=== PATIENT | female | born 1935 | race Caucasian/White ===

== ENCOUNTER 2017-08-06 10:18 | Emergency (ER) | payer MEDICARE, BC, OTHER ==
[2017-08-06 10:45] VITALS: BP 133/69
--- NOTE | 2017-08-06 10:58 | UC ---
Neck Pain HPI - HPI Summary HPI Summary: C/O right sided neck pain over the last 3 days, worse since last night. - History of Current Complaint Chief Complaint: UCUpperExtremity Stated Complaint: NECK PAIN Time Seen by Provider: 08/06/17 10:50 Hx Obtained From: Patient ?: No Onset/Duration Of Injury/Symptoms: Days - 3 Mechanism Of Injury: No Known Trauma Onset/Duration: Gradual Onset, Worse Since - onset Location: Discrete At: - right posterior neck, Radiates To: - across the back of the head Character: Throbbing Aggravating Factors: Movement Alleviating Factors: Heat, Message Associated Signs & Symptoms: Positive: Headache Related History: Other - Getting nerve blocks on the left side. - Risk Factors Meningitis Risk Factors: Elderly - Allergies/Home Medications Allergies/Adverse Reactions: Allergies Allergy/AdvReac Type Severity Reaction Status Date / Time No Known Allergies Allergy Verified 08/06/17 10:45 Home Medications: Home Medications Aspirin [Aspirin 81 MG TAB] 1 tab PO EVERY OTHER DAY 08/06/17 [History Confirmed 08/06/17] Carbidopa/Levodop 25/250MG(*) [Sinemet 25/250 TAB(*)] 1 tab PO BID 08/06/17 [ History Confirmed 08/06/17] Cholecalciferol [Vitamin D] 1 tab PO DAILY 08/06/17 [History Confirmed 08/06/17] Loperamide CAP* [Imodium CAP*] 1 tab PO DAILY PRN 08/06/17 [History Confirmed ] Naproxen Sodium [Naproxen Sodium 220 mg] 2 tab PO BID PRN 08/06/17 [History Confirmed 08/06/17] Probiotic Product [Align] 1 tab PO DAILY 08/06/17 [History Confirmed 08/06/17] Rifaximin [Xifaxan] 1 tab PO BID PRN 08/06/17 [History Confirmed 08/06/17] Zolpidem TAB* [Ambien*] 0.5 tab PO BEDTIME PRN 08/06/17 [History Confirmed 08/06] PMH/Surg Hx/FS Hx/Imm Hx Previously Healthy: No - arthritis - Surgical History Surgical History: Yes Surgery Procedure, Year, and Place: Left Knee Surgery; T&A - Family History Known Family History: Positive: Hypertension Negative: Cardiac Disease, Diabetes - Social History Occupation: Retired Lives: With Family Alcohol Use: Rare Substance Use Type: None Smoking Status (MU): Former Smoker Have You Smoked in the Last Year: No - Immunization History Most Recent Influenza Vaccination: 07/2017 Review Of Systems Musculoskeletal: Positive: Myalgia - in the neck Neurological: Positive: Headache All Other Systems Reviewed And Are Negative: Yes Physical Exam Triage Information Reviewed: Yes Appearance: Well-Appearing, Well-Nourished, Pain Distress - mild with movement Vital Signs: Initial Vital Signs Temp 98.7 F 08/06/17 10:37 Pulse 66 08/06/17 10:37 Resp 16 08/06/17 10:37 BP 133/69 08/06/17 10:37 Pulse Ox 94 08/06/17 10:37 Vital Signs Reviewed: Yes Eyes: Positive: Conjunctiva Inflamed - mild Neck: Positive: Tenderness @ - right cervical paraspinous muscles and right middle trapezius Respiratory Exam: Normal Cardiovascular: Positive: RRR, Murmur:Sys:Grade _?_/ - 2/6 murmur Musculoskeletal: Positive: ROM Limited @ - in the neck Neurological Exam: Normal - sensation normal with pinprick in the neck and shoulders Psychological Exam: Normal Skin Exam: Normal Neck Pain Course/Dx - Differential Dx/Diagnosis Differential Dx/HQI/PQRI: Arthritis, Dystonia, Strain, Torticollis Provider Diagnoses: Cervicalgia Discharge - Discharge Plan Condition: Stable Disposition: HOME Patient Education Materials: Neck Pain (ED) Additional Instructions: Apply heat first. Then massage with aspercreme or other analgesic balms. If not improving Physical therapy might be helpful.
== END 2017-08-06 11:16 | disposition home or self-care (01) ==
LOC: UCCORT 10:18
DX: M54.2 Cervicalgia (principal); Z87.891 Personal history of nicotine dependence
CPT/HCPCS: 99211; G0463

== ENCOUNTER 2018-01-07 13:13 | Emergency (ER) | payer MEDICARE, BC, OTHER ==
[2018-01-07 13:44] VITALS: BP 127/66
--- NOTE | 2018-01-07 14:39 | UC ---
Respiratory Complaint HPI - HPI Summary HPI Summary: worsening cough over the past 2 weeks, denies fevers or chills - History of Current Complaint Chief Complaint: UCRespiratory Stated Complaint: CONGESTION Time Seen by Provider: 01/07/18 13:40 Hx Obtained From: Patient ?: No Onset/Duration: Gradual Onset, Lasting Weeks - 2, Still Present Timing: Constant Severity Initially: Mild Severity Currently: Mild Pain Intensity: 0 Character: Cough: Nonproductive Aggravating Factors: Nothing Alleviating Factors: Nothing Associated Signs And Symptoms: Positive: Pleuritic Chest Pain - withcough - Allergies/Home Medications Allergies/Adverse Reactions: Allergies Allergy/AdvReac Type Severity Reaction Status Date / Time No Known Allergies Allergy Verified 01/07/18 13:39 Home Medications: Home Medications Furosemide TAB* [Lasix TAB*] 40 mg PO BID 01/07/18 [History Confirmed 01/07/18] PMH/Surg Hx/FS Hx/Imm Hx Previously Healthy: No Cardiovascular History: Hypertension Neurological History: Other Other Neurological History: parkinsons - Surgical History Surgical History: Yes Surgery Procedure, Year, and Place: Left Knee Surgery; T&A - Family History Known Family History: Positive: Hypertension Negative: Cardiac Disease, Diabetes - Social History Occupation: Disabled Lives: With Family Alcohol Use: Rare Substance Use Type: None Smoking Status (MU): Former Smoker Have You Smoked in the Last Year: No - Immunization History Most Recent Influenza Vaccination: 07/2017 Review of Systems Constitutional: Negative Skin: Negative Eyes: Negative ENT: Negative Respiratory: Shortness Of Breath, Cough Cardiovascular: Chest Pain - with cough Gastrointestinal: Negative Genitourinary: Negative Motor: Negative Neurovascular: Negative Musculoskeletal: Negative Neurological: Negative Psychological: Negative Is Patient Immunocompromised?: No All Other Systems Reviewed And Are Negative: Yes Physical Exam Triage Information Reviewed: Yes Appearance: Well-Appearing, No Pain Distress, Well-Nourished Vital Signs: Initial Vital Signs Temp 98.3 F 01/07/18 13:38 Pulse 69 01/07/18 13:38 Resp 20 01/07/18 13:38 BP 127/66 01/07/18 13:38 Pulse Ox 97 01/07/18 13:38 Vital Signs Reviewed: Yes Eye Exam: Normal Eyes: Positive: Conjunctiva Clear ENT Exam: Normal ENT: Positive: Normal ENT inspection, Hearing grossly normal, Pharynx normal, TMs normal. Negative: Nasal congestion, Tonsillar swelling, Tonsillar exudate, Trismus, Muffled voice, Hoarse voice, Sinus tenderness Neck exam: Normal Neck: Positive: Supple, Nontender, No Lymphadenopathy Respiratory Exam: Normal Respiratory: Positive: Chest non-tender, Lungs clear, Normal breath sounds, No respiratory distress, No accessory muscle use Cardiovascular Exam: Normal Cardiovascular: Positive: RRR, No Murmur, Pulses Normal, Brisk Capillary Refill Musculoskeletal Exam: Normal Musculoskeletal: Positive: Strength Intact, ROM Intact, No Edema Neurological Exam: Normal Neurological: Positive: Alert, Muscle Tone Normal Psychological Exam: Normal Skin Exam: Normal UC Diagnostic Evaluation - Laboratory O2 Sat by Pulse Oximetry: 97 - Radiology Xray Interpretation: Positive (See Comments) - mild pulmonary edema and congestion, possible lytic changes in bone Radiology Interpretation Completed By: Radiologist - EKG Cardiac Rate: NL Cardiac Rhythm: Sinus: Normal - borderline QT and GA Ectopy: None Respiratory Course/Dx - Course Course Of Treatment: pt will be discharged from urgent care for follow up at [facility] ED for further evaluation and treatment - Differential Dx/Diagnosis Provider Diagnoses: Pulmonary Congestion - Physician Notification/Consults Discussed Patient Care With: Lawrence Bonds Time Discussed With Above Provider: 14:30 Discharge - Sign-Out/Discharge Documenting (check all that apply): Discharge - Discharge Plan Condition: Stable Disposition: HOME Discharge Disposition Comment: to [facility] ED with alfa driving for further evaluation and treatment Patient Education Materials: Pulmonary Edema (ED) Referrals: Travon Cleveland MD [Primary Care Provider] - As Soon As Possible Additional Instructions: Please go directly to the emergency department for evaluation of pulmonary congestion---- Follow bone changes with MD [facility] - Billing Disposition and Condition Condition: STABLE Disposition: HOME
--- NOTE | 2018-01-07 14:51 | RAD ---
INDICATION: Cough and pleuritic chest pain for 2 weeks. Bronchitis. Congestion. COMPARISON: June 21, 2017 CT abdomen. July 02, 2013 CT chest. TECHNIQUE: Dual energy PA and routine lateral views of the chest were obtained. REPORT: Cardiomegaly, prominent mildly ill-defined central pulmonary vasculature. Diffuse prominence of the interstitial markings with subtle thickened peripheral interlobular septa. Grossly clear pleural spaces. Negative for pneumothorax. Unremarkable mediastinal contours. Diffusely sclerotic bones with small lytic foci similar to findings on June 21, 2017 CT. IMPRESSION: 1. Mild pulmonary vascular congestion and interstitial edema. 2. Diffusely sclerotic bones with small lytic foci similar to findings on June 21, 2017 CT concerning for potential metastatic disease. The differential includes metabolic bone disease.
== END 2018-01-07 15:31 | disposition home or self-care (01) ==
LOC: UCCORT 13:13
DX: R09.89 Other specified symptoms and signs involving the circulatory and respiratory systems (principal); Z87.891 Personal history of nicotine dependence
CPT/HCPCS: 71046; 93005; 99212; G0463